=== PATIENT | female | born 1995 | race Caucasian/White ===

== ENCOUNTER 2017-05-15 01:13 | Emergency (ER) | END 2017-05-15 03:50 | disposition home or self-care (01) ==

== ENCOUNTER 2017-06-23 15:08 | Emergency (ER) | END 2017-06-23 18:52 | disposition home or self-care (01) ==

== ENCOUNTER 2018-03-31 16:40 | Emergency (ER) | END 2018-03-31 19:08 | disposition left against medical advice (07) ==